=== PATIENT | female | born 1940 | race Caucasian/White ===

== ENCOUNTER → 2017-07-12 08:48 | Outpatient (CLI) | payer MEDICARE, OTHER, MEDICAID, SELFPAY ==
[2017-07-12 09:49] LABS: Basophils # 0.1 K/mm3 (0-0.2); Basophils % 0.8 % (0.1-2.0); Eosinophils # 0.3 K/mm3 (0.0-0.4); Eosinophils % 3.6 % (0.1-12.0); Hematocrit 38.5 % (37.0-47.0); Hemoglobin 12.3 g/dL (12.2-16.2); Lymphocytes # 1.1 K/mm3 (0.7-4.5); Mean Corpuscular Volume 99.8 fl (81-99); Mean Platelet Volume 7.3 fl (7.4-10.4); Monocytes # 0.5 K/mm3 (0.1-1.0); Monocytes % 5.5 % (1.7-9.3); Neutrophils # 6.5 K/mm3 (1.8-7.8); Neutrophils % 77.2 % (37.0-80.0); Platelet Count 476 K/mm3 (142-424); Red Blood Count 3.86 M/mm3 (4.20-5.40); Red Cell Distribution Width 13.2 % (11.5-17.5); White Blood Count 8.4 K/mm3 (4.8-10.8)
[2017-07-12 10:06] LABS: Alanine Aminotransferase 20 U/L (12-78); Albumin Level 3.6 gm/dL (3.4-5.0); Alkaline Phosphatase 100 U/L (46-116); Anion Gap 11.4 mEq/L (5-15); Aspartate Amino Transferase 23 U/L (15-37); Bilirubin,Total 0.3 mg/dL (0.2-1.0); Blood Urea Nitrogen 22 mg/dL (7-18); Carbon Dioxide 31 mmol/L (21.0-32.0); Chloride 103 mmol/L (98-107); Creatinine,Serum 0.96 mg/dL (0.55-1.02); Estimated Glomerular Filt Rate 57 ml/min (>60); GFR (African American) > 60 ML/MIN (>60); Globulin 3.5 gm/dl (1.3-3.2); Glucose 123 mg/dL (74-106); Potassium 4.4 mmoL/L (3.5-5.1); Sodium 141 mmol/L (136-145); Total Protein,Serum 7.1 gm/dL (6.4-8.2)
== END ==
PROVIDERS: PCP Physician Assistant; Visit Provider Internal Medicine
DX: C50.912 Malignant neoplasm of unspecified site of left female breast (principal)
CPT/HCPCS: 36415; 80053; 85025

== ENCOUNTER → 2017-08-02 12:54 | Outpatient (CLI) | payer MEDICARE, OTHER, MEDICAID, SELFPAY ==
[2017-08-02 13:25] LABS: Basophils # 0.1 K/mm3 (0-0.2); Basophils % 0.6 % (0.1-2.0); Eosinophils # 0.3 K/mm3 (0.0-0.4); Eosinophils % 3.8 % (0.1-12.0); Hematocrit 38.9 % (37.0-47.0); Hemoglobin 12.3 g/dL (12.2-16.2); Lymphocytes # 1.2 K/mm3 (0.7-4.5); Lymphocytes % 16.2 K/mm3 (10-50); Mean Corpuscular HGB Conc 31.5 g/dL (31.8-35.4); Mean Corpuscular Hemoglobin 30.6 pg (27.0-31.2); Mean Corpuscular Volume 97.1 fl (81-99); Mean Platelet Volume 7.5 fl (7.4-10.4); Monocytes # 0.4 K/mm3 (0.1-1.0); Monocytes % 5.9 % (1.7-9.3); Neutrophils # 5.3 K/mm3 (1.8-7.8); Neutrophils % 73.5 % (37.0-80.0); Platelet Count 364 K/mm3 (142-424); Red Blood Count 4.01 M/mm3 (4.20-5.40); White Blood Count 7.2 K/mm3 (4.8-10.8)
[2017-08-02 16:30] LABS: Alanine Aminotransferase 26 U/L (12-78); Albumin Level 3.5 gm/dL (3.4-5.0); Alkaline Phosphatase 98 U/L (46-116); Anion Gap 13.7 mEq/L (5-15); Aspartate Amino Transferase 28 U/L (15-37); Bilirubin,Total 0.3 mg/dL (0.2-1.0); Blood Urea Nitrogen 22 mg/dL (7-18); Calcium 9.2 mg/dL (8.5-10.1); Carbon Dioxide 31 mmol/L (21.0-32.0); Chloride 102 mmol/L (98-107); Creatinine,Serum 0.89 mg/dL (0.55-1.02); Estimated Glomerular Filt Rate 62 ml/min (>60); GFR (African American) 75 ML/MIN (>60); Globulin 3.5 gm/dl (1.3-3.2); Glucose 115 mg/dL (74-106); Potassium 4.7 mmoL/L (3.5-5.1); Sodium 142 mmol/L (136-145)
== END ==
PROVIDERS: PCP Physician Assistant; Visit Provider Nurse Practitioner
DX: C79.81 Secondary malignant neoplasm of breast
CPT/HCPCS: 36415; 80053; 85025

== ENCOUNTER → 2017-08-23 13:20 | Outpatient (CLI) | payer MEDICARE, OTHER, MEDICAID, SELFPAY ==
[2017-08-23 14:04] LABS: Basophils % 0.3 % (0.1-2.0); Eosinophils # 0.2 K/mm3 (0.0-0.4); Eosinophils % 2.7 % (0.1-12.0); Hematocrit 39.3 % (37.0-47.0); Hemoglobin 12.4 g/dL (12.2-16.2); Mean Corpuscular HGB Conc 31.6 g/dL (31.8-35.4); Mean Platelet Volume 7.5 fl (7.4-10.4); Monocytes # 0.5 K/mm3 (0.1-1.0); Monocytes % 6.3 % (1.7-9.3); Neutrophils # 5.6 K/mm3 (1.8-7.8); Neutrophils % 76.7 % (37.0-80.0); Platelet Count 356 K/mm3 (142-424); Red Blood Count 4.13 M/mm3 (4.20-5.40); Red Cell Distribution Width 13.1 % (11.5-17.5); White Blood Count 7.3 K/mm3 (4.8-10.8)
[2017-08-23 16:09] LABS: Alanine Aminotransferase 25 U/L (12-78); Albumin Level 3.5 gm/dL (3.4-5.0); Alkaline Phosphatase 93 U/L (46-116); Anion Gap 11.2 mEq/L (5-15); Aspartate Amino Transferase 25 U/L (15-37); Bilirubin,Total 0.3 mg/dL (0.2-1.0); Blood Urea Nitrogen 22 mg/dL (7-18); Calcium 9.2 mg/dL (8.5-10.1); Carbon Dioxide 33 mmol/L (21.0-32.0); Chloride 102 mmol/L (98-107); Creatinine,Serum 0.99 mg/dL (0.55-1.02); Estimated Glomerular Filt Rate 55 ml/min (>60); GFR (African American) 66 ML/MIN (>60); Globulin 3.6 gm/dl (1.3-3.2); Glucose 146 mg/dL (74-106); Potassium 4.2 mmoL/L (3.5-5.1); Sodium 142 mmol/L (136-145); Total Protein,Serum 7.1 gm/dL (6.4-8.2)
== END ==
PROVIDERS: PCP Physician Assistant; Visit Provider Internal Medicine
DX: C50.919 Malignant neoplasm of unspecified site of unspecified female breast (principal)
CPT/HCPCS: 36415; 80053; 85025

== ENCOUNTER 2017-08-23 15:56 | Emergency (ER) | payer MEDICARE, OTHER, MEDICAID, SELFPAY ==
[2017-08-23 16:12] VITALS: BP 151/98; PULSE 83; RESP 18; TEMP 36.7; O2SAT 98; BMI 21.7
--- NOTE | 2017-08-23 16:17 | XR_ITS ---
XR humerus RT CLINICAL INDICATION: Pain following injury, metastatic disease ITS.REASON: HEARD A POP ORDERING PHYSICIAN: Wili Oleary MD PATIENT AGE: 76 years COMPARISON: 07/11/2016 FINDINGS: There is a pathologic fracture through the distal shaft of the humerus mildly displaced. The distal fracture fragment is displaced medially x 5 mm and dorsally x 5 mm. There is callus formation at this region. A lytic area is present at the fracture site. There are no recent exams. It is possible that there has been a refracture through a healing pathologic fracture. Please correlate with history. There is remodeling of the proximal aspect of the humerus with an old fracture of the proximal shaft. Mixed areas of decreased and increased density present involving the proximal mid shaft of the humerus consistent with metastatic disease. There are multiple metastatic foci of the right ribs and right clavicle. 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
--- NOTE | 2017-08-23 16:17 | XR_ITS ---
XR elbow RT min 3V HISTORY: Pain, metastatic disease ITS.REASON: HEARD A POP ORDERING PHYSICIAN: Wili Oleary MD PATIENT AGE: 76 years COMPARISON: 07/11/2016 FINDINGS: There is a pathologic fracture through the distal shaft of the humerus mildly displaced. The distal fracture fragment is displaced medially x 5 mm and dorsally x 5 mm. There is callus formation at this region. A lytic area is present at the fracture site. There are no more recent exams. It is possible that there has been a refracture through a healing pathologic fracture. Please correlate with history. The elbow joint itself has an unremarkable appearance. IMPRESSION: Mildly displaced healing pathological fracture through the distal shaft of the humerus possibly related to re-fracture
--- NOTE | 2017-08-23 16:38 | HMH.EDGENADL ---
ED Disposition Clinical Impression: Pathological fracture, right humerus, initial encounter for fracture Disposition: Home, Self-Care Condition on Discharge: Good Instructions: How to Use a Sling, How to Take Care of Your Splint Additional Instructions: Use your oxycodone for pain. Additional instructions for FRACTURED (BROKEN) BONE: See Dr. Ann as soon as possible for further evaluation. Treat your splint like you would a cast: Do not get it wet (cover with a plastic bag while bathing or showering). If the splint feels too tight, you may loosen the donna wrap covering it, but do not remove the splint. You may ice the fracture by applying an ice pack over the top of the splint, without removing the splint. Return to an emergency department immediately if you have uncontrollable pain, loss of feeling or inability to move your injured extremity. Referrals: Lamar Anthony [Primary Care Provider] - Jermaine Ann MD [Staff Physician] - (Call tomorrow to schedule earliest available appointment, to be seen within 1 week) - Critical Care Critical Care Time: No Attestation: On 08/23/17, the high probability of a clinically significant, sudden or life threatening deterioration of the following system(s) required my full and direct attention, intervention and personal management. The time I documented below is in addition to time spent performing reported procedures but includes the following listed in this critical care notation. Medical Decision Making Vital Signs: 08/23/17 16:12 Temperature 98.1 F Temperature Source Oral Pulse Rate [Right Brachial] 83 Respiratory Rate 18 Blood Pressure [Right Arm] 151/98 Blood Pressure Mean [Right Arm] 115 Blood Pressure Source [Right Arm] Automatic Cuff Blood Pressure Position [Right Arm] Sitting 02 Sat by Pulse Oximetry 98 Orders (Tests/Meds): ED MEDICATIONS Discontinued Medications Generic Name Dose Route Start Last Admin Trade Name Freq PRN Reason Stop Dose Admin Morphine Sulfate 5 mg 08/23/17 16:46 08/23/17 16:58 Morphine 5mg/Ml Syringe IM 08/23/17 16:47 5 mg ONCE ONE Administration Ondansetron HCl 4 mg 08/23/17 16:46 08/23/17 16:58 Zofran 4mg/2ml Vial IM 08/23/17 16:47 4 mg ONCE ONE Administration ORDERS Category Date Time Status XR elbow RT min 3V Stat Exams 08/23/17 16:17 Taken XR humerus RT Stat Exams 08/23/17 16:17 Taken - Radiology Data #1 Image(s): Humerus, Elbow Image Reviewed: Yes I reviewed the patient's radiology results Healed/healing fracture of proximal humerus, pathological. New pathological fracture of the distal humeral shaft. Metastatic disease to right humerus. - Foreign Inquiry Pt receiving controlled substance: Yes Foreign was queried for this patient: No Reason not queried -: Emergent pt cond-no time Risks and benefits of using a controlled substance: were not discussed with pt by me (on opiates at home, chronic cancer pain) General Adult HPI - General Chief complaint: PAIN Stated complaint: Possible dislocated right arm sent from Dr Edmondson Mode of Arrival: Wheelchair Limitations: No Limitations Description of Symptoms (Recalled from ER Triage Doc. by RN): getting in truck, pulled on handle and right elbow popped - History of Present Illness HPI narrative: The patient complains of an injury to her right distal humerus area. She was pulling herself up into a truck about 40 minutes ago when she felt a pop in that area. Dr. Kaiser, her oncologist, center to the emergency room for a possible dislocation. 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 She was treated by Dr. Kaiser with a sling. She did not see an orthopedic physician. She currently has no numbness or weakness of her extremity. She has some deformity of the distal humerus. She is on oxycodone 10 mg for pain at home, last taken this morn
[2017-08-23 18:09] VITALS: BP 180/94; PULSE 87; RESP 16; TEMP 36.9
== END 2017-08-23 18:11 | disposition home or self-care (01) ==
PROVIDERS: Emergency Provider Emergency Medicine; Family Provider Physician Assistant; PCP Physician Assistant
DX: M84.421A Pathological fracture, right humerus, initial encounter for fracture (principal)
CPT/HCPCS: 36415; 73060; 73080; 80053; 85025; 96372; 99281; J2405

== ENCOUNTER → 2017-08-30 14:22 | Outpatient (CLI) | payer MEDICARE, OTHER, MEDICAID, SELFPAY ==
--- NOTE | 2017-08-30 14:28 | XR_ITS ---
XR humerus RT CLINICAL INDICATION: Follow-up fracture, metastatic disease ITS.REASON: xrays in splint ORDERING PHYSICIAN: Polo Fitch MD PATIENT AGE: 76 years COMPARISON: 08/23/2017 FINDINGS: Mildly displaced pathologic fracture is once again noted through the distal shaft of the humerus is some callus formation is proximal to the fracture. Lytic lesion is present at the fracture site. There is mottled sclerotic and lucent appearance of the proximal and mid aspect of the humerus consistent with metastatic disease. There is an old proximal humeral fracture. Multiple static foci are present within the ribs. IMPRESSION: Overall no change in minimally displaced pathologic fracture of the distal humerus with metastatic disease
== END ==
PROVIDERS: PCP Physician Assistant; Visit Provider Orthopaedic Surgery
DX: M84.421A Pathological fracture, right humerus, initial encounter for fracture (principal)
CPT/HCPCS: 73060

== ENCOUNTER → 2017-09-01 09:25 | Outpatient (CLI) | payer MEDICARE, OTHER, MEDICAID, SELFPAY ==
[2017-09-01 09:49] LABS: Blood Urea Nitrogen 16 mg/dL (7-18); Creatinine,Serum 0.93 mg/dL (0.55-1.02); Estimated Glomerular Filt Rate 59 ml/min (>60); GFR (African American) 71 ML/MIN (>60)
--- NOTE | 2017-09-01 09:54 | CT_ITS ---
CT chest w con HISTORY: Follow-up metastatic disease, Follow-up breast cancer ITS.REASON: BREAST CA ORDERING PHYSICIAN: Shankar Kaiser MD PATIENT AGE: 76 years TECHNIQUE: Axial images obtained following the administration of 75 mL of Isovue 370 . Sagittal, and coronal reformatted images are also generated and reviewed. COMPARISON: None FINDINGS: There has been interval development of small medium-sized bilateral pleural effusions. No obvious mediastinal or hilar mass. There are coronary artery calcifications. Left breast mass once again noted and appears somewhat more extensive 5.5 x 3.5 cm previously 4.8 x 2.4 cm. Mass extends to the chest wall. There are multiple noncalcified pulmonary nodules which have increased in size compared to previous study. The largest pulmonary masses in the right lower lobe anteriorly measuring 3 x 2.7 cm previously 1.8 x 1.3 cm. There are some scattered groundglass opacity in the upper lobes which could be due to edema. There are mild atelectatic changes in the lung bases. There are multiple lytic and sclerotic metastasis throughout the skeleton with extensive involvement of the thoracic spine and lower cervical spine as well as the sternum and the humeri and scapula. Blastic changes within the spine have worsened. Previously there was a lytic lesion in the lower aspect of the sternum which now has more sclerotic appearance. Multiple mixed lytic and blastic lesions of the ribs are noted and appear more extensive on today's exam. IMPRESSION: 1. Worsening pulmonary and bony metastasis 2. Interval development of small bilateral pleural effusions. 3. Slightly enlarging left breast mass
--- NOTE | 2017-09-01 09:54 | CT_ITS ---
CT abdomen pelvis w con CLINICAL INDICATION: ITS.REASON: BREAST CA' ORDERING PHYSICIAN: Shankar Kaiser MD PATIENT AGE: 76 years COMPARISON: 11/06/2015 TECHNIQUE: Axial images obtained with sagittal and coronal reformats. PROCEDURE: Oral Contrast: Redicat IV Contrast: 75 mL's of Isovue-370 performed in conjunction with the chest CT. FINDINGS: No focal liver lesion is evident. There is a large gallstone. There is some soft tissue density around the gallstone which could be related to overlying noncalcified portion of the stone or even thickening of the gallbladder wall. There is some minimal prominence of the central biliary radicals. No renal mass or hydronephrosis. No intestinal obstruction or free air. The spleen, adrenal glands, and pancreas are unremarkable. No evidence of appendicitis or diverticulitis. Uterus has somewhat lobular contour with decreased attenuation superiorly likely due to fibroid involvement at the uterine fundus. There is extensive mixed lytic and blastic metastasis involving the lumbar spine and pelvis. This has markedly progressed compared to the previous exam. There are pathological fractures involving the right subcapital region of the femoral head with superior displacement of the femur x 3 cm. Pathologic fracture also involves the left superior pubic ramus with lytic changes and the inferior pubic ramus. Lytic lesion involves the ischial tuberosity. These changes have developed since the previous exam. IMPRESSION: 1. Progression of extensive lumbar and pelvic skeletal metastasis now with a fracture of the right femoral subcapital region with superior displacement of the distal femur x 3 cm also with pathologic fracture of the left superior and inferior pubic ramus and left ischial tuberosity with lytic changes 2. Cholelithiasis
== END ==
PROVIDERS: Visit Provider Internal Medicine
DX: C50.912 Malignant neoplasm of unspecified site of left female breast (principal)
CPT/HCPCS: 36415; 71260; 74177; 82565; 84520; Q9967

== ENCOUNTER 2017-09-11 08:13 | Outpatient (CLI) | payer MEDICARE, OTHER, MEDICAID, SELFPAY ==
[2017-09-11 08:14] VITALS: BMI 21.4
[2017-09-11 08:59] LABS: Basophils % 0.5 % (0.1-2.0); Eosinophils # 0.2 K/mm3 (0.0-0.4); Eosinophils % 2.2 % (0.1-12.0); Hematocrit 40.5 % (37.0-47.0); Hemoglobin 12.7 g/dL (12.2-16.2); Lymphocytes # 0.8 K/mm3 (0.7-4.5); Lymphocytes % 11.2 K/mm3 (10-50); Mean Corpuscular HGB Conc 31.4 g/dL (31.8-35.4); Mean Corpuscular Hemoglobin 29.7 pg (27.0-31.2); Mean Corpuscular Volume 94.5 fl (81-99); Monocytes # 0.5 K/mm3 (0.1-1.0); Monocytes % 6.5 % (1.7-9.3); Neutrophils # 5.9 K/mm3 (1.8-7.8); Neutrophils % 79.7 % (37.0-80.0); Platelet Count 464 K/mm3 (142-424); Red Blood Count 4.28 M/mm3 (4.20-5.40); Red Cell Distribution Width 13.4 % (11.5-17.5); White Blood Count 7.4 K/mm3 (4.8-10.8)
[2017-09-11 10:00] VITALS: BP 143/71; PULSE 84; RESP 18; TEMP 36.8; O2SAT 91
[2017-09-11 10:15] VITALS: BP 166/90; PULSE 85; RESP 18; O2SAT 92
[2017-09-11 10:30] VITALS: BP 180/87; PULSE 85; RESP 20; O2SAT 92
[2017-09-11 10:45] VITALS: BP 180/88; PULSE 85; RESP 18; O2SAT 93
[2017-09-11 11:15] VITALS: BP 172/80; PULSE 79; RESP 18
== END 2017-09-11 11:15 | disposition home or self-care (01) ==
LOC: INF 08:13
PROVIDERS: Family Provider Physician Assistant; PCP Physician Assistant; Visit Provider Internal Medicine
DX: C50.912 Malignant neoplasm of unspecified site of left female breast (principal)
CPT/HCPCS: 85025; 96367; 96413; J3489; J9201; Q0166

== ENCOUNTER → 2017-09-15 08:23 | Outpatient (CLI) | payer MEDICARE, OTHER, MEDICAID, SELFPAY ==
--- NOTE | 2017-09-15 08:39 | XR_ITS ---
XR humerus RT COMPARISON: Right humerus 08/23/2017 and 08/30/2017 HISTORY: Follow-up pathologic fracture distal third right humerus TECHNIQUE: AP and semioblique views FINDINGS: Additional callus formation seen at the fracture site suggesting ongoing healing of the pathologic fracture. The diffuse mixed blastic and lytic appearance of the humeral head and proximal humeral shaft is again noted consistent with metastatic disease with probable metastatic disease involving the visualized portions of the right upper ribs as well. IMPRESSION: Additional callus formation consistent with progressive healing of the pathologic fracture when compared to most recent study
== END ==
PROVIDERS: PCP Physician Assistant; Visit Provider Orthopaedic Surgery
DX: M84.421A Pathological fracture, right humerus, initial encounter for fracture (principal)
CPT/HCPCS: 73060

== ENCOUNTER 2017-10-16 10:13 | Outpatient (CLI) | payer MEDICARE, OTHER, MEDICAID, SELFPAY ==
[2017-10-16] VITALS (9 sets, daily range): BP systolic 134–187; BP diastolic 67–100; PULSE 66–82; RESP 16–18; TEMP 37.3
[2017-10-16 10:44] LABS: Basophils % 0.5 % (0.1-2.0); Eosinophils # 0.2 K/mm3 (0.0-0.4); Eosinophils % 2.7 % (0.1-12.0); Hematocrit 38.7 % (37.0-47.0); Hemoglobin 11.8 g/dL (12.2-16.2); Lymphocytes # 0.9 K/mm3 (0.7-4.5); Lymphocytes % 11.4 K/mm3 (10-50); Mean Corpuscular HGB Conc 30.5 g/dL (31.8-35.4); Mean Corpuscular Hemoglobin 28.4 pg (27.0-31.2); Mean Corpuscular Volume 93.1 fl (81-99); Mean Platelet Volume 7.3 fl (7.4-10.4); Monocytes # 0.5 K/mm3 (0.1-1.0); Monocytes % 6.2 % (1.7-9.3); Neutrophils % 79.1 % (37.0-80.0); Platelet Count 345 K/mm3 (142-424); Red Blood Count 4.16 M/mm3 (4.20-5.40); Red Cell Distribution Width 15.4 % (11.5-17.5); White Blood Count 7.6 K/mm3 (4.8-10.8)
[2017-10-16 10:50] LABS: Alanine Aminotransferase 21 U/L (12-78); Albumin Level 3.3 gm/dL (3.4-5.0); Albumin/Globulin Ratio 0.8 (1.1-1.8); Alkaline Phosphatase 118 U/L (46-116); Anion Gap 12.1 mEq/L (5-15); Aspartate Amino Transferase 35 U/L (15-37); Bilirubin,Total 0.3 mg/dL (0.2-1.0); Blood Urea Nitrogen 23 mg/dL (7-18); Calcium 9.4 mg/dL (8.5-10.1); Carbon Dioxide 30 mmol/L (21.0-32.0); Chloride 101 mmol/L (98-107); Creatinine,Serum 1.05 mg/dL (0.55-1.02); Estimated Glomerular Filt Rate 51 ml/min (>60); GFR (African American) 62 ML/MIN (>60); Globulin 4.3 gm/dl (1.3-3.2); Glucose 130 mg/dL (74-106); Potassium 4.1 mmoL/L (3.5-5.1); Sodium 139 mmol/L (136-145); Total Protein,Serum 7.6 gm/dL (6.4-8.2)
== END 2017-10-16 16:10 | disposition home or self-care (01) ==
LOC: INF 10:14
PROVIDERS: Family Provider Physician Assistant; PCP Physician Assistant; Visit Provider Internal Medicine
DX: Z51.11 Encounter for antineoplastic chemotherapy (principal); C50.912 Malignant neoplasm of unspecified site of left female breast
CPT/HCPCS: 36415; 80053; 85025; 96413; 96415; J9267; Q0166

== ENCOUNTER 2017-11-08 08:05 | Outpatient (CLI) | payer MEDICARE, OTHER, MEDICAID, SELFPAY ==
[2017-11-08] VITALS (7 sets, daily range): BP systolic 149–188; BP diastolic 83–89; PULSE 64–73; RESP 16–18; TEMP 36.6; O2SAT 97; BMI 21.6
[2017-11-08 09:07] LABS: Basophils # 0.1 K/mm3 (0-0.2); Basophils % 0.8 % (0.1-2.0); Eosinophils # 0.2 K/mm3 (0.0-0.4); Eosinophils % 3.1 % (0.1-12.0); Hematocrit 36.6 % (37.0-47.0); Hemoglobin 11.6 g/dL (12.2-16.2); Lymphocytes # 0.9 K/mm3 (0.7-4.5); Lymphocytes % 12.8 K/mm3 (10-50); Mean Corpuscular HGB Conc 31.6 g/dL (31.8-35.4); Mean Corpuscular Hemoglobin 28.9 pg (27.0-31.2); Mean Corpuscular Volume 91.4 fl (81-99); Mean Platelet Volume 6.9 fl (7.4-10.4); Monocytes # 0.5 K/mm3 (0.1-1.0); Monocytes % 6.5 % (1.7-9.3); Neutrophils # 5.6 K/mm3 (1.8-7.8); Neutrophils % 76.8 % (37.0-80.0); Platelet Count 372 K/mm3 (142-424); Red Cell Distribution Width 15.4 % (11.5-17.5); White Blood Count 7.3 K/mm3 (4.8-10.8)
[2017-11-08 09:27] LABS: Alanine Aminotransferase 25 U/L (12-78); Albumin Level 3.3 gm/dL (3.4-5.0); Albumin/Globulin Ratio 0.8 (1.1-1.8); Alkaline Phosphatase 129 U/L (46-116); Anion Gap 10.6 mEq/L (5-15); Aspartate Amino Transferase 33 U/L (15-37); Bilirubin,Total 0.3 mg/dL (0.2-1.0); Blood Urea Nitrogen 18 mg/dL (7-18); Calcium 9.4 mg/dL (8.5-10.1); Carbon Dioxide 30 mmol/L (21.0-32.0); Chloride 105 mmol/L (98-107); Creatinine Clearance Estimated 42 mL/min (0-300); Creatinine,Serum 0.94 mg/dL (0.55-1.02); Estimated Glomerular Filt Rate 58 ml/min (>60); GFR (African American) 70 ML/MIN (>60); Glucose 123 mg/dL (74-106); Potassium 3.6 mmoL/L (3.5-5.1); Sodium 142 mmol/L (136-145); Total Protein,Serum 7.3 gm/dL (6.4-8.2)
== END 2017-11-08 12:20 | disposition home or self-care (01) ==
LOC: INF 08:13
PROVIDERS: Family Provider Physician Assistant; PCP Physician Assistant; Visit Provider Internal Medicine
DX: C50.919 Malignant neoplasm of unspecified site of unspecified female breast (principal); Z51.11 Encounter for antineoplastic chemotherapy; M84.421A Pathological fracture, right humerus, initial encounter for fracture; L65.9 Nonscarring hair loss, unspecified
CPT/HCPCS: 36415; 80053; 85025; 96413; J9267; Q0166

== ENCOUNTER 2017-11-29 10:10 | Outpatient (CLI) | payer MEDICARE, OTHER, MEDICAID, SELFPAY ==
[2017-11-29 10:17] VITALS: BMI 21.6
[2017-11-29 10:47] LABS: Basophils # 0.1 K/mm3 (0-0.2); Basophils % 0.6 % (0.1-2.0); Eosinophils # 0.2 K/mm3 (0.0-0.4); Eosinophils % 2.6 % (0.1-12.0); Hematocrit 37.5 % (37.0-47.0); Hemoglobin 12.6 g/dL (12.2-16.2); Lymphocytes # 0.9 K/mm3 (0.7-4.5); Lymphocytes % 12.8 K/mm3 (10-50); Mean Corpuscular HGB Conc 33.5 g/dL (31.8-35.4); Mean Corpuscular Hemoglobin 29.6 pg (27.0-31.2); Mean Corpuscular Volume 88.4 fl (81-99); Mean Platelet Volume 7.3 fl (7.4-10.4); Monocytes # 0.4 K/mm3 (0.1-1.0); Monocytes % 5.7 % (1.7-9.3); Neutrophils # 5.8 K/mm3 (1.8-7.8); Neutrophils % 78.2 % (37.0-80.0); Platelet Count 377 K/mm3 (142-424); Red Blood Count 4.24 M/mm3 (4.20-5.40); Red Cell Distribution Width 15.4 % (11.5-17.5); White Blood Count 7.4 K/mm3 (4.8-10.8)
[2017-11-29 11:13] LABS: Alanine Aminotransferase 23 U/L (12-78); Albumin Level 3.5 gm/dL (3.4-5.0); Albumin/Globulin Ratio 0.9 (1.1-1.8); Alkaline Phosphatase 137 U/L (46-116); Anion Gap 14.3 mEq/L (5-15); Bilirubin,Total 0.4 mg/dL (0.2-1.0); Blood Urea Nitrogen 15 mg/dL (7-18); Calcium 9.5 mg/dL (8.5-10.1); Carbon Dioxide 27 mmol/L (21.0-32.0); Chloride 103 mmol/L (98-107); Creatinine Clearance Estimated 42 mL/min (0-300); Creatinine,Serum 0.91 mg/dL (0.55-1.02); Estimated Glomerular Filt Rate 60 ml/min (>60); GFR (African American) 73 ML/MIN (>60); Globulin 4.1 gm/dl (1.3-3.2); Glucose 137 mg/dL (74-106); Sodium 140 mmol/L (136-145); Total Protein,Serum 7.6 gm/dL (6.4-8.2)
[2017-11-29 11:14] LABS: Aspartate Amino Transferase 45 U/L (15-37); Potassium 4.3 mmoL/L (3.5-5.1)
--- NOTE | 2017-11-29 12:12 | PC.NURSE ---
Eric CHAMBERS FROM DR FISCHER'S OFFICE CALLED TO REPORT THAT PT WAS NOT GETTING [employer] TODAY AND SHE REMOVED IV IN DR FISCHER'S OFFICE AND DISCHARGED FROM THERE.
== END 2017-11-29 12:05 | disposition home or self-care (01) ==
LOC: INF 10:24
PROVIDERS: Family Provider Physician Assistant; PCP Physician Assistant; Visit Provider Internal Medicine
DX: C50.919 Malignant neoplasm of unspecified site of unspecified female breast (principal)
CPT/HCPCS: 80053; 85025

== ENCOUNTER 2017-12-12 08:15 | Outpatient (CLI) | payer MEDICARE, OTHER, MEDICAID, SELFPAY ==
[2017-12-12 09:00] VITALS: BP 166/90; PULSE 76; RESP 18; TEMP 36.4
[2017-12-12 09:30] VITALS: BP 166/90; PULSE 76; RESP 18; TEMP 36.4
== END 2017-12-12 09:30 | disposition home or self-care (01) ==
LOC: INF 08:42
PROVIDERS: Family Provider Physician Assistant; PCP Physician Assistant; Visit Provider Internal Medicine
DX: Z85.3 Personal history of malignant neoplasm of breast (principal); C79.51 Secondary malignant neoplasm of bone
CPT/HCPCS: 96374; J3489

== ENCOUNTER → 2018-02-12 09:05 | Outpatient (CLI) | payer MEDICARE, OTHER, MEDICAID, SELFPAY ==
[2018-02-12 09:24] LABS: Basophils % 0.3 % (0.1-2.0); Eosinophils # 0.1 K/mm3 (0.0-0.4); Eosinophils % 2.8 % (0.1-12.0); Hematocrit 33.2 % (37.0-47.0); Hemoglobin 10.5 g/dL (12.2-16.2); Lymphocytes # 0.7 K/mm3 (0.7-4.5); Lymphocytes % 13.6 K/mm3 (10-50); Mean Corpuscular HGB Conc 31.7 g/dL (31.8-35.4); Mean Corpuscular Hemoglobin 27.4 pg (27.0-31.2); Mean Corpuscular Volume 86.4 fl (81-99); Mean Platelet Volume 7.1 fl (7.4-10.4); Monocytes # 0.4 K/mm3 (0.1-1.0); Monocytes % 7.5 % (1.7-9.3); Neutrophils # 3.9 K/mm3 (1.8-7.8); Neutrophils % 75.8 % (37.0-80.0); Platelet Count 290 K/mm3 (142-424); Red Blood Count 3.85 M/mm3 (4.20-5.40); Red Cell Distribution Width 13.9 % (11.5-17.5); White Blood Count 5.1 K/mm3 (4.8-10.8)
[2018-02-12 10:28] LABS: Alanine Aminotransferase 29 U/L (12-78); Albumin Level 2.8 gm/dL (3.4-5.0); Albumin/Globulin Ratio 0.8 (1.1-1.8); Alkaline Phosphatase 92 U/L (46-116); Anion Gap 9.9 mEq/L (5-15); Aspartate Amino Transferase 28 U/L (15-37); Bilirubin,Total 0.3 mg/dL (0.2-1.0); Blood Urea Nitrogen 15 mg/dL (7-18); Calcium 8.5 mg/dL (8.5-10.1); Carbon Dioxide 31 mmol/L (21.0-32.0); Chloride 105 mmol/L (98-107); Creatinine,Serum 1.13 mg/dL (0.55-1.02); Estimated Glomerular Filt Rate 47 ml/min (>60); GFR (African American) 57 ML/MIN (>60); Globulin 3.7 gm/dl (1.3-3.2); Glucose 149 mg/dL (74-106); Potassium 3.9 mmoL/L (3.5-5.1); Sodium 142 mmol/L (136-145); Total Protein,Serum 6.5 gm/dL (6.4-8.2)
== END ==
PROVIDERS: Visit Provider Internal Medicine
DX: Z85.3 Personal history of malignant neoplasm of breast (principal); C79.51 Secondary malignant neoplasm of bone
CPT/HCPCS: 36415; 80053; 85025